=== PATIENT | female | born 1975 | race Caucasian/White ===

== ENCOUNTER 2020-09-19 11:00 | Emergency (ER) | payer BC ==
--- NOTE | 2020-09-19 11:56 | EDM.PDOC ---
ED HPI GENERAL MEDICAL PROBLEM - General Chief Complaint: Syncope Stated Complaint: SYNCOPE/FELL DOWNSTAIRS Time Seen by Provider: 09/19/20 11:18 Source of Information: Reports: Patient, Family History Limitations: Reports: No Limitations - History of Present Illness INITIAL COMMENTS - FREE TEXT/NARRATIVE: The patient presents with her for a fall. She said she slipped on the carpet and fell about 7 steps. She did not hit her head and landed on her but and legs. She had no LOC. She had some pain in her left shoulder. She tried moving it and then her eyes rolled in the back of her head and she stiffened up. This lasted for about 1 minute. She did not shake. She was not confused after. This has never happened before. She has some mild pain in her left sergey ulder. She has no headache, fever, chills, cough, chest pain, shortness of breath, abdominal pain, nausea or vomiting. She has no medical problems and she is not on any medications. She has noticed in the past couple months that she is slipping more. She has no numbness or weakness. Onset: Sudden Duration: Minutes: Location: Reports: Upper Extremity, Left (shoulder) Quality: Reports: Sharp Severity: Mild Improves with: Reports: Immobilization Worsens with: Reports: Movement Context: Reports: Trauma (Fell) Associated Symptoms: Reports: No Other Symptoms - Related Data Allergies Allergy/AdvReac Type Severity Reaction Status Date / Time No Known Allergies Allergy Verified 09/19/20 11:18 Home Meds: Home Meds diphenhydrAMINE [Benadryl] 25 mg PO BEDTIME 09/19/20 [History] Past Medical History - Past Surgical History Female Surgical History: Reports: Tubal Ligation Social & Family History - Tobacco Use Tobacco Use Status *Q: Never Tobacco User Second Hand Smoke Exposure: No - Recreational Drug Use Recreational Drug Use: No ED ROS GENERAL - Review of Systems Review Of Systems: See Below Constitutional: Reports: No Symptoms HEENT: Reports: No Symptoms Respiratory: Reports: No Symptoms Cardiovascular: Reports: Syncope. Denies: Chest Pain Endocrine: Reports: No Symptoms GI/Abdominal: Reports: No Symptoms : Reports: No Symptoms Musculoskeletal: Reports: Shoulder Pain (left) - Physical Exam Exam: See Below Exam Limited By: No Limitations General Appearance: Alert, No Apparent Distress Ears: Normal External Exam Nose: Normal Inspection Head Exam: Atraumatic, Normocephalic Neck: Normal Inspection, Supple, Non-Tender Respiratory/Chest: No Respiratory Distress, Lungs Clear, Normal Breath Sounds Cardiovascular: Regular Rate, Rhythm, No Edema, No Murmur GI/Abdominal: Soft, Non-Tender, No Organomegaly, No Mass Neuro Exam (Abbreviated): Alert, Oriented, No Motor/Sensory Deficits Extremities: Other (no pain upon palpation to the left shoulder. She has mild pain with movement. Good sensation and pulses distally.) #1 Interpretation EKG Date: 09/19/20 Time: 12:12 Rhythm: NSR Rate (Beats/Min): 70 [place]: Normal P-Wave: Present QRS: Normal ST-T: Normal QT: Normal Course - Vital Signs Last Recorded V/S: Last Vital Signs Temp 99.4 F 09/19/20 11:15 Pulse 81 09/19/20 11:15 Resp 16 09/19/20 11:15 BP 132/75 09/19/20 11:15 Pulse Ox 99 09/19/20 11:15 - Orders/Labs/Meds Orders: Active Orders 24 hr Category Date Time Status Cardiac Monitoring [RC] . DIRECTED Care 09/19/20 11:33 Active EKG Documentation Completion [RC] STAT Care 09/19/20 11:33 Active Head wo Cont [CT] Stat Exams 09/19/20 11:34 Taken Labs: Laboratory Tests 09/19/20 09/19/20 Range/Units 11:49 11:49 WBC 9.37 (3.98-10.04) K/mm3 RBC 4.55 (3.98-5.22) M/mm3 Hgb 11.3 (11.2-15.7) gm/dl Hct 37.0 (34.1-44.9) % MCV 81.3 (79.4-94.8) fl MCH 24.8 L (25.6-32.2) pg MCHC 30.5 L (32.2-35.5) g/dl RDW Std Deviation 45.1 (36.4-46.3) fL Plt Count 236 (182-369) K/mm3 MPV 11.3 (9.4-12.3) fl Neut % (Auto) 84.2 H (34.0-71.1) % Lymph % (Auto) 9.5 L (19.3-51.7) % [place] % (Auto) 5.9 (4.7-12.5) % Eos % (Auto) 0.2 L (0.7-5.8) Baso % (Auto) 0.1 (0.1-1.2) % Neut # (Auto) 7.89 H (1.56-6.13) K/mm3 Lymph # (Auto) 0.89 L (1.18-3.74) K/mm3 [place] # (Auto) 0.55 H (0.24-0.36) K/mm3 Eos # (Auto) 0.02 L (0.04-0.36) K/mm3 Baso # (Auto) 0.01 (0.01-0.08) K/mm3 Manual Slide Review Abnormal smear Sodium 137 (136-145) mEq/L Potassium 4.3 (3.5-5.1) mEq/L Chloride 100 (98-107) mEq/L Carbon Dioxide 23 (21-32) mEq/L Anion Gap 18.3 H (5-15) BUN 10 (7-18) mg/dL Creatinine 0.8 (0.55-1.02) mg/dL Est Cr Clr Drug Dosing 68.42 mL/min Estimated GFR (MDRD) > 60 (>60) mL/min BUN/Creatinine Ratio 12.5 L (14-18) Glucose 95 (74-106) mg/dL Calcium 9.6 (8.5-10.1) mg/dL Magnesium 1.9 (1.8-2.4) mg/dl Total Bilirubin 0.4 (0.2-1.0) mg/dL AST 13 L (15-37) U/L ALT 14 (14-59) U/L Alkaline Phosphatase 44 L (46-116) U/L Troponin I < 0.017 (0.00-0.056) ng/mL Total Protein 7.9 (6.4-8.2) g/dl Albumin 4.4 (3.4-5.0) g/dl Globulin 3.5 gm/dL Albumin/Globulin Ratio 1.3 (1-2) - Re-Assessments/Exams Free Text/Narrative Re-Assessment/Exam: 09/19/20 11:57 I ordered an EKG, CT of her head and labs. She did not want any x-rays of her shoulder. 09/19/20 13:03 Her EKG shows a NSR with no acute changes. Her CT of her head shows nothing acute. Her labs look good. Departure - Departure Time of Disposition: 13:05 Disposition: Home, Self-Care 01 Condition: Good Clinical Impression: Witnessed seizure-like activity Fall Qualifiers: Encounter type: initial encounter Qualified Code(s): W19.XXXA - Unspecified fall, initial encounter Sprain of left shoulder Qualifiers: Encounter type: initial encounter Shoulder sprain type: unspecified sprain Qualified Code(s): S43.402A - Unspecified sprain of left shoulder joint, initial encounter - Discharge Information *PRESCRIPTION DRUG MONITORING PROGRAM REVIEWED*: Not Applicable *COPY OF PRESCRIPTION DRUG MONITORING REPORT IN PATIENT ALEXI: Not Applicable Referrals: Lisbeth Guzman MD [Primary Care Provider] - 1 Week Forms: ED Department Discharge Additional Instructions: Drink plenty of fluids. Take tylenol or motrin for your shoulder pain. Follow up with Dr Guzman within a week. Please return if you are worse. Sepsis Event Note (ED) - Evaluation Sepsis Screening Result: No Definite Risk - Focused Exam Vital Signs: Vital Signs Temp Pulse Resp BP Pulse Ox 09/19/20 11:15 99.4 F 81 16 132/75 99 - My Orders Last 24 Hours: My Active Orders 09/19/20 11:33 Cardiac Monitoring [RC] . DIRECTED EKG Documentation Completion [RC] STAT 09/19/20 11:34 Head wo Cont [CT] Stat - Assessment/Plan Last 24 Hours: My Active Orders 09/19/20 11:33 Cardiac Monitoring [RC] . DIRECTED EKG Documentation Completion [RC] STAT 09/19/20 11:34 Head wo Cont [CT] Stat
--- NOTE | 2020-09-20 11:28 | CT ---
Head CT Technique: Multiple axial sections through the brain were obtained. Intravenous contrast was not utilized. Reconstructed coronal and sagittal images were obtained. Comparison: No prior intracranial imaging is available. Findings: Ventricles along with basal cisterns and sulci over the convexities are within normal limits for the patient's age. No abnormal parenchymal densities are seen. No evidence of intracranial hemorrhage. No midline shift or mass-effect is seen. Bone window settings were reviewed. Visualized paranasal sinuses and mastoid sinuses show nothing acute. No acute calvarial abnormality is appreciated. Impression: 1. Nothing acute is appreciated on noncontrast head CT exam. Diagnostic code #1 I agree with preliminary report from [facility] report finalized on 09/19/20, 1:33 PM CDT
== END 2020-09-19 13:12 | disposition home or self-care (01) ==
LOC: JD.ED 11:00
DX: S43.402A Unspecified sprain of left shoulder joint, initial encounter (principal); R25.9 Unspecified abnormal involuntary movements; W01.0XXA Fall on same level from slipping, tripping and stumbling without subsequent striking against object, initial encounter
CPT/HCPCS: 36415; 70450; 70450-26; 80053; 83735; 84484; 85025; 93005; 93010; 99284; 99284-25